=== PATIENT | female | born 1955 | race Caucasian/White ===

== ENCOUNTER 2020-04-01 16:58 | Outpatient (CLI) | payer BC, SELFPAY ==
--- NOTE | ~2020-04-01 | MM_ITS ---
EXAMINATION: MM screening jeffrey BI w niranjan HISTORY: Screening mammogram TECHNIQUE: Craniocaudal and mediolateral oblique 3-D tomosynthesis images were obtained and synthetic 2-D images were generated. Images of the left breast are obtained without and with implant displacem ent. CAD analysis was submitted and interpreted. COMPARISON: 12/11/2017, 02/21/2016, 02/03/2013 BREAST PARENCHYMAL COMPOSITION: There are scattered areas of fibroglandular density. FINDINGS: An asymmetry in the middle third of the upper right breast on the mediolateral oblique view has an appearance similar to prior mammograms. There is no evidence of suspicious mass, calcificatio n, or architectural distortion to suggest malignancy in either breast. There has been no suspicious i nterval change. IMPRESSION: 1. No mammographic evidence of malignancy. 2. Recommend routine screening mammography in one year. BI-RADS Category 2: Benign finding(s). Reviewed, dictated and finalized at location A. 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
== END 2020-04-01 16:59 | disposition home or self-care (01) ==
LOC: ANHIMG 17:00
PROVIDERS: Visit Provider Obstetrics & Gynecology
DX: Z12.31 Encounter for screening mammogram for malignant neoplasm of breast (principal)
CPT/HCPCS: 77063; 77067

== ENCOUNTER 2023-04-26 07:34 | Outpatient (CLI) | payer MEDICARE, SELFPAY ==
--- NOTE | ~2023-04-26 | MM_ITS ---
EXAMINATION: MM screening jeffrey BI w niranjan HISTORY: Screening TECHNIQUE: Craniocaudal and mediolateral oblique 3-D tomosynthesis images were obtained and synthetic 2-D images were generated. CAD analysis was submitted and interpreted. COMPARISON: Comparison to multiple prior studies sequentially, with oldest reviewed study dated 02/11. BREAST PARENCHYMAL COMPOSITION: Breast composed of scattered areas of fibroglandular density FINDINGS: There is a left subglandular silicone implant. There is no evidence of suspicious mass, gaby cification, or architectural distortion to suggest malignancy in either breast. There has been no rodrigo picious interval change. IMPRESSION: 1. No mammographic evidence of malignancy. 2. Recommend routine screening mammography in one year. BI-RADS Category 1: Negative Reviewed, dictated and finalized at location A. 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
== END 2023-04-26 07:35 | disposition home or self-care (01) ==
PROVIDERS: Visit Provider Obstetrics & Gynecology
DX: Z12.31 Encounter for screening mammogram for malignant neoplasm of breast (principal)
CPT/HCPCS: 77063; 77067

== ENCOUNTER 2023-10-25 12:52 | Outpatient (CLI) | payer MEDICARE, SELFPAY ==
--- NOTE | ~2023-10-25 | XR_ITS ---
XR foot LT min 3V 10/25/2023 13:05 Indication: Left foot pain Procedure: 4 views left foot Comparison: No prior studies for comparison. Findings: Mild osteoarthritis first MTP joint. No fracture or traumatic malalignment. Lisfranc joint intact. No soft tissue abnormality. No foreign bodies. Impression: 1: Mild osteoarthritis first metatarsophalangeal joint. Reviewed, dictated and finalized at location B. Impression: 1: Mild osteoarthritis first metatarsophalangeal joint.
== END 2023-10-25 12:53 ==
PROVIDERS: PCP Internal Medicine; Visit Provider Internal Medicine
DX: M19.072 Primary osteoarthritis, left ankle and foot (principal)
CPT/HCPCS: 73630

== ENCOUNTER 2024-04-24 08:21 | Day surgery (SDC) | payer MEDICARE, SELFPAY ==
[2024-03-03 12:59] VITALS: BMI 23.8
[2024-04-01 14:04] VITALS: BMI 24.2
[2024-04-24 09:15] VITALS: BP 110/78; PULSE 73; RESP 15; TEMP 37.3; O2SAT 97
[2024-04-24] MEDS: LACTATED RINGERS 1,000 ML 150 ML IV CONT (09:27)
--- NOTE | 2024-04-24 10:07 | P.HP_ITS ---
History of Present Illness History of Present Illness Consent: Risks, benefits, and alternatives have been discussed and questions answered. Patient agrees to proceed with procedure. Chief complaint: Diverticulitis of Intestine Narrative: Vicki Tejada is a 69 year old female referred Dr. Damian for colonoscopy. Patient reports that several months ago while traveling in [place] patient experienced severe abdominal pain. She was seen and treated in a local emergency room for diverticulitis. Patient did well however had mild persistent pain for which a 2nd dose of antibiotics was prescribed locally. Patient reports that her bowel habits have returned to normal. She had is any abdominal pain over the last 1-2 months. She does report prior colonoscopy some years ago. These records are not available for review. Family history is noncontributory. Patient presents today for follow-up colonoscopy. Review of Systems Review of Systems: All systems reviewed & are unremarkable except as noted in HPI and below PMFSH Family History Family History (System 04/17/19 @ 16:36 by Marilee Strong) Sibling Diabetes mellitus Grandparent Family history of cardiovascular disease Social History Social History (System 04/17/19 @ 16:36 by Marilee Strong) Years smoked: 2 Smoking status: Former smoker Tobacco type: cigarettes Second hand tobacco smoke exposure: No Alcohol intake: current Drinks per week: 1 Substance use type: does not use Living arrangements: with family Spiritual care concerns: No Meds Home Medications and Allergies Home Medications ?Medication ?Instructions ?Recorded ?Confirmed ?Type No Home Medications 04/24/24 04/24/24 History Allergies Allergy/AdvReac Type Severity Reaction Status Date / Time No Known Allergies Allergy Verified 04/24/24 09:14 Vital Signs Vital Signs - 24 hr 04/24/24 09:15 Temperature 99.2 F Pulse Rate 73 Respiratory Rate 15 Blood Pressure 110/78 Pulse Oximetry 97 Oxygen Delivery Room Air Exam Narrative: Physical exam reveals patient to be alert. Vital signs stable. HEENT exam is unremarkable. Patient is anicteric. Lungs are clear to auscultation and to percussion. Heart is Without murmur or extra sounds. Abdomen bowel sounds are present soft nontender with no organomegaly. Digital external rectal exam is normal. Assessment and Plan Assessment and plan (1) Diverticulitis: Code(s): K57.92 - Diverticulitis of intestine, part unspecified, without perforation or abscess without bleeding Status: Acute Assessment and Plan: Patient was found to have diverticulitis several months ago is now status post treatment with antibiotics with resolved abdominal pain. Plan for surveillance colonoscopy at this time.
--- NOTE | 2024-04-24 10:46 | WPDANESEPPF ---
Anes - Initial Pre Proc Eval Procedure: Operation Date: 04/24/24 10:45 Proposed Procedures p Diagnostic Colonoscopy - Kenneth Snyder MD Date/Time: 04/24/24 10:46 Surgeon: Kenneth Snyder MD Pre Op Diagnosis: Diverticulitis of Intestine Patient Data Age: 69 Gender: F Height: 1.65 m Weight: 63.9 kg Last Vital Signs Temp 37.3 C 04/24/24 09:15 Pulse 73 04/24/24 09:15 Resp 15 04/24/24 09:15 BP 110/78 04/24/24 09:15 Pulse Ox 97 04/24/24 09:15 O2 Del Method Room Air 04/24/24 09:15 Allergies Allergy/AdvReac Type Severity Reaction Status Date / Time No Known Allergies Allergy Verified 04/24/24 09:14 Home Medications ?Medication ?Instructions ?Recorded ?Confirmed ?Type No Home Medications 04/24/24 04/24/24 History Patient hx anesthesia problems: none Family hx anesthesia problems: none Results Review: All pre-operative results and documents have been reviewed as part of the pre-operative evaluation. FORMERLY [facility], [facility] Family History Family History Sibling Diabetes mellitus Grandparent Family history of cardiovascular disease Social History Social History Years smoked: 2 Smoking status: Former smoker Tobacco type: cigarettes Second hand tobacco smoke exposure: No Alcohol intake: current Drinks per week: 1 Substance use type: does not use Living arrangements: with family Spiritual care concerns: No Anes - Eval Final PreProcedure Day of Procedure 04/24/24 10:46 Patient weight: normal Heart: regular rate and rhythm Lungs: clear to auscultation Airway: Mallampati scale class 1 Neurological: alert and oriented Last oral intake: >/= 8 hours ASA classification: I Emergent: no Anesthetic plan: proceed Anesthesia type and monitoring: general GIVS and standard monitoring Results Review: All pre-operative results and documents have been reviewed as part of the pre-operative evaluation. Informed Consent: The patient's anesthetic plan and its attendant risks and benefits were discussed with the patient/family/POA. Questions were solicited and answers provided to the satisfaction of the patient/family/POA.
[2024-04-24 11:12] VITALS: BP 101/54; PULSE 69; RESP 18; O2SAT 100
[2024-04-24 11:22] VITALS: BP 92/56; PULSE 50; RESP 16; O2SAT 99
[2024-04-24 11:32] VITALS: BP 92/55; PULSE 64; RESP 18; O2SAT 99
[2024-04-24 11:42] VITALS: BP 125/94; PULSE 64; RESP 15; O2SAT 98
[2024-04-24 11:52] VITALS: BP 114/85; PULSE 61; RESP 16; O2SAT 100
--- NOTE | 2024-04-24 12:00 | WPDANESPN ---
Anes - Prog Note Post-Op Date/Time: 04/24/24 12:00 Cardiovascular status: normal Respiratory status: normal Airway patency: baseline Mental status: baseline Post-Op hydration status: normal Vital Signs: Last Vital Signs Temp 37.3 C 04/24/24 09:15 Pulse 69 04/24/24 11:12 Resp 18 04/24/24 11:12 BP 101/54 L 04/24/24 11:12 Pulse Ox 100 04/24/24 11:12 O2 Del Method Room Air 04/24/24 11:12 Pain Score (VAS): 2/10 gas I/O: Intake & Output 04/23/24 04/24/24 04/24/24 23:59 07:59 15:59 Intake Total 500 Balance 500 Patient Feedback: Patient satisfied with anesthetic care.
--- NOTE | 2024-04-24 12:26 | SUR.PHASEII ---
Late note 04/24/24 1136 pt shaking and guarding stating abdominal pain 5/10 and cold. Pt given multiple blankets. This RN had to ask questions multiple times to patient to get a response from patient. Had patient lay on left and right side with knees to chest to promote gas movement. Abdomen soft. Dr. Snyder to bedside to assess patient. No new orders at this time. 1142: pt states pain is a 3/10, no more shaking or guarding. Pt states feeling much better. Pt much more aware of surroundings at this time, A&Ox4. Dr. Solis at bedside to check on patient. Pt sat up on edge of bed and states feeling well. VSS. 1213: pt wheeled out of ASC in no apparent distress with normal VS. Pt states ready for discharge. physicians number given to pt in discharge paperwork and pt states will call with any concerns.
== END 2024-04-24 12:13 | disposition home or self-care (01) ==
PROVIDERS: PCP Internal Medicine; Visit Provider Internal Medicine Gastroenterology
PROC: 0DJD8ZZ Inspection of Lower Intestinal Tract, Via Natural or Artificial Opening Endoscopic (ICD-10-PCS; CPT 45378; principal; 2024-04-24 10:45)
DX: K57.32 Diverticulitis of large intestine without perforation or abscess without bleeding (principal); K57.30 Diverticulosis of large intestine without perforation or abscess without bleeding
CPT/HCPCS: 45378